=== PATIENT | male | born 1995 | race African-American/Black ===

== ENCOUNTER 2022-06-24 14:32 | Emergency (ER) | payer SELFPAY ==
[~2022-06-24] VITALS: Ht 170.2 cm; Wt 75.0 kg
[2022-06-24 15:22] VITALS: BP 132/88
== END 2022-06-24 15:16 | disposition left against medical advice (07) ==
LOC: ER 14:58
DX: Z53.21 Procedure and treatment not carried out due to patient leaving prior to being seen by health care provider (principal)